=== PATIENT | male | born 1945 | race Caucasian/White ===

== ENCOUNTER → 2016-07-19 | Day surgery (SDC) | payer OTHER ==
[~2016-07-19] VITALS: Ht 180.3 cm; Wt 80.7 kg
[~2016-07-19] MED LIST: AGGRENOX 25 MG1 EACH PO; CO Q-10100 MG PO; CRANBERRY500 M1 PO; FLOMAX0.4 MG PO; GLUCOSAMINE CH1 EAC2 PO; HYDROCODONE-AP1 EAC6 PO; NEURONTIN 300300 M1 PO; SENNA-S TABLET1 EACH PO; TOPROL XL25 MG PO; TYLENOL325 MG PO; VITAMIN B-12500 MCG PO; VITAMIN D-32000 UNI1 PO
--- NOTE | ~2016-07-19 | S ---
[facility] [place] [address] SURGICAL PATH RPT PROCEDURE Name: ALF RIBERA Room #: [facility] M.R.#: [id number] Admission: 07/19/16 Date of : 49 Discharge: Report #: [id number] Path Case #: [id number] PATHOLOGY REPORT COLLECTION DATE: 07/19/2016 RECEIVED DATE: 07/19/2016 SUBMITTING PHYS: Dr. Rolly Palacio OTHER PHYS: Dr. Alban Burger SPECIMEN(S) RECEIVED: A.Right abdominal skin * * * * * * * * * * * * FINAL DIAGNOSIS: Skin, right abdominal skin, biopsy: - Compatible with an acrochordon. - Negative for dysplasia or malignancy. (IUV:csd; d/t: 07/20/2016) PATHOLOGIST: Sun Dominguez M.D. REPORT ELECTRONICALLY SIGNED BY: Sun Dominguez M.D. DATE/TIME: 07/20/2016 15:24 * * * * * * * * * * * * GROSS PATHOLOGY: The specimen is received in formalin, labeled "Alf Ribera and right abdominal skin." Received is a 0.4 x 0.4 x 0.2 cm pink-brizuela, wrinkled, and irregularly contoured skin lesion. The resection margin is inked black. The specimen is entirely submitted in cassette A1. (TTL; 07/19/2016) CLINICAL HISTORY: Inguinal hernia INITIAL CPT CODE(S): 08896 Professional services performed by [facility] at [facility] [address] [place] [address] Technical services performed by [facility] at [address] [place] [address], [address] [address]. [facility] [address] [place] [address] SURGICAL PATH RPT PROCEDURE Name: ALF RIBERA Room #: [facility] Madhavi.#: [id number] Admission: 07/19/16 Date of : 49 Discharge: Report #: [id number] Path Case #: [id number] [facility] [address] [address] PHONE: [phone] DIRECTOR: Wyatt Alexis M.D. * * * END OF REPORT * * *
--- NOTE | ~2016-07-19 | O ---
[facility] [place] [address] OPERATIVE REPORT Name: ALF CASTRO Room #: [facility] M..#: [id number] Admission: 07/19/16 Attend Phys: Rolly Palacio MD, F Discharge: Date of : 49 Report #: [id number] THIS REPORT FOR: //name// CC: Nerissa Cotton MD PhD Alban Palacio DATE OF SERVICE: 07/19/2016 SURGEON: Rolly Palacio MD. SOURCER: Andrés George MD. and Cinthia Murray MS3. PREOPERATIVE DIAGNOSES: 1. Left inguinal hernia, possible recurrent right inguinal hernia. 2. History of transient ischemic attack and cardiac arrhythmia. POSTOPERATIVE DIAGNOSES: 1. Indirect left inguinal hernia. 2. History of transient ischemic attack and cardiac arrhythmia. PROCEDURE: Laparoscopic transabdominal preperitoneal repair of left inguinal hernia with ProGrip mesh. ANESTHESIA: General endotracheal anesthesia and local anesthetic. ESTIMATED BLOOD LOSS: 5 mL. SPECIMEN: None. COMPLICATIONS: None appreciated. INDICATIONS FOR PROCEDURE: This is a 70-year-old male patient, who notes bulging of the left groin with associated discomfort, as well as pain extending across to his right groin. His symptoms occurred 2 months ago. He denies a change in his bowel habits. He underwent CT of the abdomen and pelvis, which showed a left inguinal hernia containing a short segment of small bowel, as well as a small amount of fat within a direct right inguinal hernia defect. The patient had undergone laparoscopic repair of his right inguinal hernia in 2009. 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 Nerissa Cotton. On exam, the patient had a left inguinal bulge, as well as tenderness to palpation in the left groin. While he had mild right groin tenderness to palpation, there was no palpable defect or bulge. The patient presents now for laparoscopic repair of his left inguinal hernia, possible recurrent right inguinal hernia repair. He understands that this may require conversion to an open procedure. [address] [address] OPERATIVE REPORT Name: ALF CASTRO Room #: [facility] M.R.#: [id number] Admission: 07/19/16 Attend Phys: Rolly Palacio MD, F Discharge: Date of : 47 Report #: [id number] OPERATIVE FINDINGS: Upon entrance into the abdominal cavity, the patient was found to have a moderate-sized indirect left inguinal defect. The previous right inguinal hernia repair appeared to be intact. The mesh was able to be seen through the peritoneal lining. There was no evidence for hernia on the right side. No other significant intraabdominal pathology was identified. There was no evidence for a femoral or direct defect on the left. While bowel had previously been seen in the hernia defect on the CT scan, there was no evidence for small bowel involvement laparoscopically. After placing the mesh, there was good medialization of the mesh with good fascial overlap. At the conclusion of the operation, the sponge, needle, and instrument counts were correct. There was no evidence for iatrogenic injury. DESCRIPTION OF PROCEDURE IN DETAIL: After the benefits and risks of the procedure were explained to the patient, which include but are not limited to risks of bleeding, infection, injury to the bowel and underlying organs, risks of DVT, pulmonary embolism, postoperative pain, postoperative expectations, an informed consent was obtained. The patient was identified in the preoperative holding area. He was given IV antibiotics as documented in the chart in line with the SCIP protocol. The patient was then taken to the operating room, and he was placed in the supine position. SCDs were placed on the patient's bilateral lower extremities, and pneumatic compression was initiated. The patient was then given IV sedation, and he was intubated without incident. The patient's abdomen and male genitalia were prepped and draped in the standard sterile fashion. A time-out was then performed to identify the correct patient and procedure. Local anesthetic was infiltrated into the skin and subcutaneous tissue, infraumbilically, where a curvilinear incision was made with #15 bladed scalpel. Dissection was carried down to the fascia. A small fascial opening was made, and an 11 mm Visiport was placed intraperitoneally with a 0-degree angled laparoscope. Pneumoperitoneum was then achieved with insufflation of carbon dioxide to 15 mmHg. A 30-degree angled laparoscope was inserted. A 5 mm ports were placed on each side of the abdomen under direct visualization after local anesthetic was infiltrated into the skin and subcutaneous tissue and appropriately sized incisions were made. Operative findings are as noted above. After determining that a recurrent right inguinal hernia was not present, I proceeded with left inguinal hernia repair. The peritoneal lining was scored from the midline over to the left anterior superior iliac spine. The peritoneal lining was then dissected off of the anterior abdominal wall with blunt dissection and judicious use of electrocautery. The inferior epigastric vessels were identified. Dissection was carried out to reduce the peritoneal lining/hernia sac from the indirect defect. This continued until the spermatic cord contents were clearly identified. The hernia sac was dissected off of the spermatic cord as well as [address] [address] OPERATIVE REPORT Name: ALF CASTRO [id number] Admission: 07/19/16 Attend Phys: Rolly Palacio MD, F Discharge: Date of : 47 Report #: [id number] out of the defect, and care was taken to ensure that the entire hernia sac was dissected free. Dissection within the preperitoneal space was carried laterally to the anterior superior iliac spine and medially to the mid aspect of the pubic tubercle. The ProGrip mesh was then tailored to fit the area with good overlap. The mesh was rolled and then placed within the abdominal cavity through the 11 mm port. The mesh was placed within the preperitoneal space and unrolled in a scroll-down fashion with the adherent side against the anterior abdominal wall. Findings are as noted above. After ensuring hemostasis within the space, the peritoneal lining was tacked back up to the abdominal wall to reperitonealize the mesh and protect the bowel from the mesh. The hernia sac was tacked to the anterior abdominal wall laterally as well using the SorbaFix absorbable fixation device. The 11 mm port site fascial opening was closed with an 0-PDS suture with the Leland-Florencia laparoscopic fascial closure device under direct visualization. The abdominal cavity was then desufflated and the ports were removed. The wounds were closed with interrupted subcuticular 4-0 monocryl sutures and Dermabond. The patient tolerated the procedure well. He was awakened, extubated, and taken to the recovery room in stable condition with no apparent intraoperative complications. <ELECTRONICALLY SIGNED> By: Rolly Palacio MD, FACS 07/20/16 0915 1134 1319 Rolly Palacio MD, MARKO /nt
[2016-07-19 10:00] VITALS: BP 106/56
== END | disposition home or self-care (01) ==
LOC: OR 07:09
DX: K40.90 Unilateral inguinal hernia, without obstruction or gangrene, not specified as recurrent (principal); I49.9 Cardiac arrhythmia, unspecified; K21.9 Gastro-esophageal reflux disease without esophagitis; I10 Essential (primary) hypertension; Z96.643 Presence of artificial hip joint, bilateral; Z98.890 Other specified postprocedural states; Z86.73 Personal history of transient ischemic attack (TIA), and cerebral infarction without residual deficits
CPT/HCPCS: 50010; 50101; 50249; 50555; 50558; 50848; 50944; 51824; 52265; 52266; 54022; 54118; 54169; 56524; 56525; 56526; 62110; 62900; 70005

== ENCOUNTER → 2017-06-28 | Outpatient (CLI) | payer OTHER ==
[~2017-06-28] VITALS: Ht 182.9 cm; Wt 79.4 kg
[~2017-06-28] MED LIST changes: +CRANBERRY200 MG PO; -CRANBERRY500 M1 PO; +FINASTERIDE5 MG PO
--- NOTE | ~2017-06-28 | HPC ---
[facility] [place] [address] PAIN MANAGEMENT CONSULTATION Name: ALF CASTRO Room #: REG CL M..#: [id number] Admission: 06/28/17 Attend Phys: Mathew Nielsen MD Discharge: Date of : 49 Report #: [id number] THIS REPORT FOR: //name// CC: Alban Nielsen DATE OF SERVICE: 06/28/2017 Followup visit for cervicalgia status post posterior laminectomy. The patient returns to pain clinic today, and I have reviewed his plain film x-rays and his MRI. I had ordered a thoracic MRI as well. It does show suggestive changes at C7-T1 of subluxation following his surgery. The thoracic spine otherwise has a normal alignment. There is a slight scoliotic change in the upper thoracic spine, which is at the area of his subluxation. This shows mild degenerative hypertrophic changes of the facet joints in that location as well. We surmised from his x-rays that his pain may be generated from this area of subluxation. This relative asymmetrical movement of the facet joint at C7-T1 and today, I have suggested medial branch nerve blocks at the level of C6, C7 and T1. This should provide complete denervation of the C7-T1 facet joint. The procedure has been explained, potential risks and benefits. He would like to proceed. He understands that this is a diagnostic injection. His pain relief will be present for the duration of his Marcaine no more than 4 hours. I have made a point that he should try to perform some provocative maneuvers during this. PHYSICAL EXAMINATION: GENERAL: He is a pleasant 71-year-old. VITAL SIGNS: Blood pressure 106/73, heart rate is 101. BMI is 23.7. SKIN: Scar from previous cervical surgery is noted posteriorly in the neck. PROCEDURE: Bilateral medial branch nerve blocks. DESCRIPTION OF PROCEDURE: The patient was taken to fluoroscopic suite and placed prone, skin prepped with ChloraPrep. Skin anesthetized first over C6, C7 and T1. Landmarks and the lateral transverse process were identified. A 25-gauge needle was advanced gently down until contact was made with the transverse process and the needle was withdrawn slightly. I did inject 1/10th of a milliliter of Omnipaque through each needle to demonstrate spread without vascular uptake. This demonstrated good location. This was then followed by an injection at each location of 0.5 mL of 0.5% bupivacaine and needles were withdrawn. C-arm was repositioned. [place] were positioned in the similar location on the right at C6, C7 and T1 and again, diagnostic injection was [address] [address] PAIN MANAGEMENT CONSULTATION Name: BETINAPEDROALF Irving NOE Room #: REG [facility] Jean-PierreMartin#: [id number] Admission: 06/28/17 Attend Phys: Mathew Nielsen MD Discharge: Date of : 47 Report #: [id number] performed. All needles were removed and he was taken to recovery room for observation. Instructions provided. He is going to come back for his second diagnostic block on Sunday. We will make a decision at that point in time whether to proceed further with radiofrequency ablation when he returns in August. By: [id number] Mathew Nielsen MD /nt
[2017-06-28 10:00] VITALS: BP 106/73
== END ==
LOC: PAIN 06:49
DX: M47.813 Spondylosis without myelopathy or radiculopathy, cervicothoracic region (principal); M50.33 Other cervical disc degeneration, cervicothoracic region; M41.83 Other forms of scoliosis, cervicothoracic region; M46.93 Unspecified inflammatory spondylopathy, cervicothoracic region; I10 Essential (primary) hypertension; K92.89 Other specified diseases of the digestive system; M19.90 Unspecified osteoarthritis, unspecified site; Z96.641 Presence of right artificial hip joint; Z96.652 Presence of left artificial knee joint; Z98.890 Other specified postprocedural states; Z79.899 Other long term (current) drug therapy; Z86.73 Personal history of transient ischemic attack (TIA), and cerebral infarction without residual deficits; Z87.891 Personal history of nicotine dependence

== ENCOUNTER → 2017-07-02 | Outpatient (CLI) | payer OTHER ==
[~2017-07-02] VITALS: Ht 182.9 cm; Wt 78.9 kg
--- NOTE | ~2017-07-02 | HPC ---
[facility] [place] [address] PAIN MANAGEMENT CONSULTATION Name: ALF CASTRO Room #: REG CL MMartin.#: [id number] Admission: 07/02/17 Attend Phys: Mathew Nielsen MD Discharge: Date of : 47 Report #: [id number] THIS REPORT FOR: //name// CC: Alban Nielsen DATE OF SERVICE: 07/02/2017 Followup visit for second of a series of 2 diagnostic blocks for cervicalgia related to cervical spondylosis and subluxation of C7 on T1. The patient returns to pain clinic today for a second treatment. He has remained off of his Aggrenox in anticipation of his injections today. Long review once again about diagnostic injections and expectations. I walked into the process all the way through radiofrequency ablation with our hopes that this will provide longer term relief. His pain is a bit more challenging to assess because he does not have pain all the time. In fact, his pain intensity is 1. It is only elevated by activity such as lifting weight and I have asked him to do that during his window of trial, so that he can determine whether or not anesthetizing these branches provides relief of the affected joints. His first diagnostic injections were successful. For nearly 4 hours, he was able to lift weights without pain. Pain score was 0-1. Typically, this would be a 6-7. We will repeat the same injection today and the same techniques and followup when he returns back from his winter vacation in [place] to consider and/or proceed with radiofrequency ablation. I have described the procedure in some detail and using books, skeleton and questions were answered including risk and benefit assessment. IMPRESSION: Cervicalgia with facet arthropathy and spondylosis. Subluxation of C7 on T1. PROCEDURE: Medial branch nerve blocks C6, C7 and T1 under fluoroscopic guidance. He was taken to fluoroscopic suite, placed prone, skin prepped with ChloraPrep. Skin anesthetized first on the left. Skin was anesthetized with 1% lidocaine and then, I advanced 25-gauge needles into position on the transverse process of the T1 vertebral body and over the lateral targets of the C6 and C7 vertebral body. At each level, I injected 0.5 mL of 0.5% bupivacaine and needles were removed. C-arm was repositioned. The needles were positioned similar location on the right C6, C7 and T1. Diagnostic injections again with each 0.5 mL of 0.5% bupivacaine. He was taken to recovery room for observation[place] [address] PAIN MANAGEMENT CONSULTATION Name: ALF CASTRO Room #: REG CLI Desi#: [id number] Admission: 07/02/17 Attend Phys: Mathew Nielsen MD Discharge: Date of : 47 Report #: [id number] second in a series of 2 diagnostic injections. He will keep track of his response and follow up with us in August for a radiofrequency ablation. <ELECTRONICALLY SIGNED> By: Mathew Nielsen MD 07/30/17 1408 1318 1544 Mathew Nielsen MD /juice
[2017-07-02 10:13] VITALS: BP 114/71
== END | disposition home or self-care (01) ==
LOC: PAIN 07:13
DX: M47.812 Spondylosis without myelopathy or radiculopathy, cervical region (principal); Z87.891 Personal history of nicotine dependence

== ENCOUNTER → 2018-03-18 | Outpatient (CLI) | payer OTHER ==
[~2018-03-18] VITALS: Ht 182.9 cm; Wt 83.0 kg
[~2018-03-18] MED LIST changes: +XARELTO10 MG PO
--- NOTE | ~2018-03-18 | HPC ---
[facility] [address] [place] [address] PAIN MANAGEMENT CONSULTATION Name: ALF CASTRO [facility] [id number] Admission: 03/18/18 Attend Phys: Mathew Nielsen MD Discharge: Date of : 47 Report #: [id number] THIS REPORT FOR: //name// CC: Alban Nielsen DATE OF SERVICE: 03/18/2018 CHIEF COMPLAINT: Low back pain with radiation into the buttocks bilaterally with some L5 distribution pain on the left, considered iliotibial band syndrome. HISTORY OF PRESENT ILLNESS: The patient is here today complaining of pain across his low back, it is 4-5 and has been bothering him for about 2 months in earnest. He has had overall back pain dating back to 12/2016. Pain is increased by prolonged sitting and actually he gets some relief with walking and the use of heat. He was previously here for cervical facet injections. We performed those injections with an anticipation that we might consider radiofrequency ablation in the future, but fortunately the injections provided substantial improvement that he never felt the need to go forward with the cervical injections. His neck is causing him very little pain at this time. PAST MEDICAL HISTORY: Significant for right hip replacement in 2012, left knee replacement in 2014. He has had a cervical spine, foraminotomy and laminectomy in 2007 and a hernia repair in 2006 and 2016. SOCIAL HISTORY: He does not use opioids. He does not use tobacco. He drinks alcohol socially 3-4 times weekly. He is retired. He is not a fall risk. He is, however, on blood thinner, Xarelto, and has only discontinued his medications since Sunday evening. Tonight, will make full 72 hours. MEDICATIONS: All other medications are reviewed and reconciled from the electronic medical record. ALLERGIES: None. PHYSICAL EXAMINATION: GENERAL: This is A very fit appearing 72-year-old. VITAL SIGNS: Blood pressure 126/74, heart rate is 91. He is 6 feet tall, 183 pounds, BMI is 24.8. He has good range of motion of the cervical spine. There is some notable scoliosis with levorotation. There is prominent paravertebral musculature on the right that is palpable and he perceives this as spasming or tight. There is some pain that radiates into the left leg. Positive straight leg raising discomfort. [facility] [address] [place] [address] PAIN MANAGEMENT CONSULTATION Name: ALF CASTRO NOE Room #: REG [facility] Madhavi.#: [id number] Admission: 03/18/18 Attend Phys: Mathew Nielsen MD Discharge: Date of : 47 Report #: [id number] IMPRESSION: Lumbar scoliosis with radiculopathy, primarily on the left in the L5 distribution. He has some axial back pain and bilateral radiation into the buttocks along the L5-S1 distribution. RECOMMENDATIONS: I had asked him to come back in tomorrow for his injection. He has been on Xarelto and I think we should hold off on an injection until we meet the recommendation for neuraxial injections, which is 72 hours. He is understanding of this. He will follow up tomorrow for lumbar epidural injection at L4-L5. Questions were answered. By: 1045 [id number] Mathew Nielsen MD /nt
[2018-03-18 09:09] VITALS: BP 126/74
== END ==
LOC: PAIN 00:13
DX: M54.16 Radiculopathy, lumbar region (principal); M41.86 Other forms of scoliosis, lumbar region; Z79.899 Other long term (current) drug therapy

== ENCOUNTER → 2018-03-19 | Outpatient (CLI) | payer OTHER ==
[~2018-03-19] VITALS: Ht 182.9 cm; Wt 83.0 kg
--- NOTE | ~2018-03-19 | HPC ---
[address] [address] PAIN MANAGEMENT CONSULTATION Name: ALF CASTRO [facility] [id number] Admission: 03/19/18 Attend Phys: Mathew Nielsen MD Discharge: Date of : 47 Report #: [id number] THIS REPORT FOR: //name// CC: Alban Nielsen DATE OF SERVICE: 03/19/2018 Followup visit for lumbar epidural injection. The patient returns to pain clinic today for an epidural injection. He was seen yesterday. We were unable to perform the injection because of the allotted amount of time required between the discontinuation of his Xarelto and the injection had not passed. He has now been off his Xarelto for over 72 hours and I have agreed to proceed with his injection. Please refer to the dictation note of just 24 hours ago, there have been no significant changes. IMPRESSION: Lumbar scoliosis with radiculopathy, primarily on the left with degenerative disk disease, multilevel. L5 distribution radiculopathy on the left and L5-S1 distribution bilaterally. PROCEDURE: Lumbar epidural injection under fluoroscopic guidance. DESCRIPTION OF PROCEDURE: He was taken to fluoroscopic suite, placed prone, skin prepped with ChloraPrep. Skin anesthetized left of midline. A 20-gauge Tuohy epidural needle advanced in the epidural space on the first attempt with loss of resistance. There was no blood or CSF aspirated. 1 mL of Omnipaque injected. Spread of dye was observed nicely along the left side of the epidural space extending somewhat in the midline. It was then followed by 3 mL of 0.5% lidocaine mixed with 80 mg of triamcinolone. He tolerated the procedure well and was observed for 45 minutes and discharged. Follow up as needed. <ELECTRONICALLY SIGNED> By: Mathew Nielsen MD 03/21/18 1538 1216 0041 Mathew Nielsen MD /nt
[2018-03-19 10:30] VITALS: BP 131/83
== END | disposition home or self-care (01) ==
LOC: PAIN 08:33
DX: M51.16 Intervertebral disc disorders with radiculopathy, lumbar region (principal); M41.86 Other forms of scoliosis, lumbar region; Z79.01 Long term (current) use of anticoagulants; Z87.891 Personal history of nicotine dependence; Z79.899 Other long term (current) drug therapy

== ENCOUNTER → 2018-04-08 | Outpatient (CLI) | payer OTHER ==
[~2018-04-08] VITALS: Ht 182.9 cm; Wt 79.8 kg
--- NOTE | ~2018-04-08 | HPC ---
[address] [address] PAIN MANAGEMENT CONSULTATION Name: ALF CASTRO [facility] [id number] Admission: 04/08/18 Attend Phys: Mathew Nielsen MD Discharge: Date of : 47 Report #: [id number] THIS REPORT FOR: //name// CC: Alban Nielsen DATE OF SERVICE: 04/08/2018 CHIEF COMPLAINT: Followup visit for low back pain with radiculopathy. The patient returns to pain clinic today. He had an excellent response to his epidural injection with short-term complete pain relief that lasted several days and then improvement in his pain of about 75% for additional days and now is about 50% improved following the injection performed on 03/19/2018. He will be leaving shortly for a vacation with family. He would like another injection. He has been off his Xarelto for 4 days. I reviewed the procedure, location of the injection as well as our impression of the pain generator. I think that there is some diagnostic information here. PHYSICAL EXAMINATION: GENERAL: He is a fit appearing 72-year-old. Blood pressure 120/73, heart rate is 80. Moves from sitting to standing position, ambulates without difficulty. Some pain across his low back. Mild positive straight leg raising is noted on the left in the L4-L5 and L5-S1 distribution. IMPRESSION: Chronic low back pain with radiculopathy improvement following initial epidural injection. PROCEDURE: Repeat lumbar epidural injection under fluoroscopic guidance. PROCEDURE: He was taken to fluoroscopic suite for procedure, placed prone, skin prepped with ChloraPrep. Skin was anesthetized over the L5-S1 interspace and a 20-gauge Tuohy epidural needle advanced into the epidural space to left of midline. There was no blood or CSF aspirated. 1 mL of Omnipaque injected. Good spread of dye observed in the epidural space followed by 3 mL of 0.5% lidocaine mixed with 80 mg of triamcinolone. He tolerated the procedure well and was observed for 45 minutes and discharged. I will see him back in the pain clinic on an as needed basis when he returns from vacation. By: [id number] Mathew Nielsen MD /nt
[2018-04-08 13:17] VITALS: BP 120/73
== END | disposition home or self-care (01) ==
LOC: PAIN 02:04
DX: M54.16 Radiculopathy, lumbar region (principal); G89.29 Other chronic pain; Z98.890 Other specified postprocedural states; Z79.899 Other long term (current) drug therapy; Z79.01 Long term (current) use of anticoagulants; Z87.891 Personal history of nicotine dependence